=== PATIENT | male | born 1995 | race Caucasian/White ===

== ENCOUNTER 2020-09-28 14:40 | Emergency (ER) | payer OTHER, SELFPAY ==
[2020-09-28 14:48] VITALS: BP 125/87; PULSE 76; RESP 16; TEMP 36.9; O2SAT 100; BMI 24.4
[2020-09-28] MEDS: methylPREDNISolone 125 MG/2 ML VIAL IV (15:37)
--- NOTE | 2020-09-28 15:57 | ED_ITS ---
HPI - Skin/Abscess/Foreign Bdy General Chief complaint: Skin/Abscess/Foreign Body Stated complaint: hives all over his upper body Time Seen by Provider: 09/28/20 15:06 Source: patient Mode of arrival: Ambulatory Limitations: no limitations History of Present Illness HPI narrative: Patient is a 25-year-old male who presents with rash all over his body which started this morning. He said he woke up and was getting ready for work when he noticed that his neck was itchy. He took the day off work he has taken Benadryl throughout the day but has progressively spread all over his torso and back. He denies any difficulty breathing with swelling or tongue swelling. He has no new known exposures. 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 MD complaint: rash Onset (ago): hour(s) Related Data Previous Rx's Medication Instructions Recorded amoxicillin 500 mg PO BID #20 cap 11/27/17 prednisone 40 mg PO DAILY #10 tab 09/28/20 Allergies Allergy/AdvReac Type Severity Reaction Status Date / Time clindamycin Allergy Verified 09/28/20 14:48 Review of Systems Review of Systems Narrative: GENERAL: Denies chills, fatigue, malaise, fever, sweats, travel HEENT: Denies sinus pain, ear pain, sore throat, difficulty swallowing, neck pain RESPIRATORY: Denies dyspnea, cough, wheezing, hemoptysis, sputum. CARDIOVASCULAR: Denies chest pain, palpitations, orthopnea, edema GASTROINTESTINAL: Denies nausea, vomiting, abdominal pain, diarrhea, constipation, melena. : Denies dysuria, frequency, incontinence, hematuria, urinary retention, flank pain. MUSCULOSKELETAL: Denies weakness, joint pain, or bony pain SKIN: See HPI NEUROLOGIC: Denies weakness, dizziness, headache, numbness, change in speech, confusion PSYCHIATRIC: No concerning psychosocial issues. 12 point review of systems is negative except for those stated above and HPI Patient History Medical History Patient denies medical problems Social History Smoking Status: Never smoker Smoking Status: Never smoker alcohol intake frequency: 0-2 drinks per day Substance Use Type: does not use Exam Initial Vital Signs Initial Vital Signs: Vital Signs Temperature 98.4 F 09/28/20 14:48 Pulse Rate 76 09/28/20 14:48 Respiratory Rate 16 09/28/20 14:48 Blood Pressure 125/87 09/28/20 14:48 Pulse Oximetry 100 09/28/20 14:48 GENERAL: Well-appearing, well-nourished and in no acute distress. HEENT: Head atraumatic,EOMI, pupils reactive, face symmetric, moist mucous membranes CARDIOVASCULAR: Regular rate and rhythm without murmurs, rubs or gallops. RESPIRATORY: Breath sounds equal bilaterally, no wheezes rales or rhonchi. EXTREMITIES: Normal range of motion, no clubbing or edema. Neurovascularly intact NEUROLOGICAL: Alert and oriented x4. SKIN: Erythema blanchable hives on torso and back Course Orders Ordered: Discontinued Medications Methylprednisolone (Methylprednisolone 125 Mg/2 Ml Vial) 125 mg IV NOW ONE Stop: 09/28/20 15:33 Last Admin: 09/28/20 15:37 Dose: 125 mg Documented by: NOREEN Vital Signs Vital signs: Vital Signs - 8 hr 09/28/20 14:48 09/28/20 16:07 Temperature 98.4 F Pulse Rate 76 56 L Respiratory Rate 16 Blood Pressure 125/87 121/66 Pulse Oximetry 100 100 MDM - Skin/Abscess/Foreign Bdy MDM Narrative Medical decision making narrative: Patient's rash appears to be allergic with pruritus however unclear what he is allergic to. He has no infectious symptoms it does not seem to be cellulitic in nature. Discharge Plan Departure Patient Disposition: Home Clinical Impression: Urticaria Instructions: Hives Activity Restrictions/Additional Instructions: *You have been diagnosed with urticaria *What to do: Your likely experiencing an allergic reaction is unknown what you are allergic to. If it happens again he may require allergy testing *Continue to take medications as directed Prednisone 40 mg once a day for 5 days start tomorrow Benadryl 25-50 mg every 6 hours if needed for itching, this does cause drowsiness do not drive or operate heavy machinery *Follow up with your primary care provider in 2-3 days *Return to ER if you should have increased difficulty breathing, worsening rash or any new, worsening or concerning symptoms Prescriptions: New prednisone 20 mg tablet 40 mg PO DAILY Qty: 10 RF: 0 No Action amoxicillin 500 MG capsule 500 mg PO BID Qty: 20 RF: 0 Referrals: [facility] [Outside]
[2020-09-28 16:07] VITALS: BP 121/66; PULSE 56; O2SAT 100
== END 2020-09-28 16:08 | disposition home or self-care (01) ==
PROVIDERS: Emergency Provider Emergency Medicine
DX: L50.9 Urticaria, unspecified (principal)
CPT/HCPCS: 96374; 99281; 99284; J2930

== ENCOUNTER → 2021-08-11 14:46 | Outpatient (CLI) | payer OTHER, SELFPAY ==
[2021-08-11 16:49] LABS: Liquefaction Semen NO (YES); PH Semen 8 (7-8); Volume Semen 2.5 (1.0-5.0)
[2021-08-11 16:50] LABS: Sperm Count 28 x10^6/mL (20-150); Sperm Morphology 48 %ABNORM (0-30); Sperm Motility 40% % Motile
== END ==
PROVIDERS: Referring Provider Specialist; Visit Provider Specialist
DX: Z31.69 Encounter for other general counseling and advice on procreation (principal)
CPT/HCPCS: 89320

== ENCOUNTER → 2021-09-01 12:50 | Outpatient (CLI) | payer OTHER, SELFPAY ==
[2021-09-01 15:27] LABS: Volume Semen 1.25 (1.0-5.0)
[2021-09-01 15:29] LABS: Liquefaction Semen NO (YES); PH Semen 8 (7-8); Sperm Count 18 x10^6/mL (20-150); Sperm Morphology 34 %ABNORM (0-30)
[2021-09-01 15:31] LABS: Sperm Motility 35% % Motile
== END ==
PROVIDERS: Referring Provider Specialist; Visit Provider Specialist
DX: Z31.69 Encounter for other general counseling and advice on procreation (principal)
CPT/HCPCS: 89320

== ENCOUNTER → 2022-02-16 14:00 | Outpatient (ROUT) | payer OTHER, SELFPAY ==
[2022-02-16 13:58] LABS: Liquefaction Semen YES (YES); PH Semen 8 (7-8); Volume Semen 4 (1.0-5.0)
[2022-02-16 13:59] LABS: Sperm Count 70 x10^6/mL (20-150); Sperm Morphology 32 %ABNORM (0-30); Sperm Motility 65% % Motile
== END ==
PROVIDERS: PCP Family Medicine; Visit Provider Urology
DX: R86.9 Unspecified abnormal finding in specimens from male genital organs (principal)
CPT/HCPCS: 89320